=== PATIENT | male | born 1985 | race Caucasian/White ===

== ENCOUNTER 2022-02-11 00:03 | Emergency (ER) | payer MEDICAID ==
[~2022-02-11] VITALS: Ht 175.3 cm; Wt 108.9 kg
[2022-02-11 00:10] VITALS: BP_SYST 163
[2022-02-11] MEDS ORDERED: INDO-12 PO (00:46)
[2022-02-11 00:56] VITALS: BP_SYST 159
== END 2022-02-11 00:56 | disposition home or self-care (01) ==
LOC: SED 00:03
DX: M10.072 Idiopathic gout, left ankle and foot (principal); F17.210 Nicotine dependence, cigarettes, uncomplicated
CPT/HCPCS: 82962; 99283

== ENCOUNTER 2022-06-30 18:35 | Emergency (ER) | payer MEDICAID ==
[~2022-06-30] VITALS: Ht 177.8 cm; Wt 104.3 kg
[~2022-06-30 18:35] MED LIST: INDO-12 PO
[2022-06-30 18:39] VITALS: BP_SYST 168
--- NOTE | 2022-06-30 18:48 | NUR ---
Patient to ER bed 4 to gown for evaluation. Side rails up. Report given to JEROD JCAKSON.
--- NOTE | 2022-06-30 19:03 | NUR ---
PATIENT PRESENTS TO ER C/O NOT FEELING WELL AFTER DRINKING ALCOHOL AND USE COCAINE VITAL STABLE NO CP WILL CONTINUE TO MONITOR.
--- NOTE | 2022-06-30 19:14 | NUR ---
Placed in room, report given to LEI ALL QUESTIONS ANSWERED.
[2022-06-30] MEDS ORDERED: LORazepam 2 MG/ML VIAL IVP ONE (19:15)
[2022-06-30] MEDS ORDERED: FOLIC ACID 1 MG, THIAMINE HCL 100 MG, MAGNESIUM SULFATE 1 GM, MVI 10 ML in NACL 0.9% 1,... IV ONE (19:15)
[2022-06-30 19:16] LABS: BASOPHILS # (AUTO) 0.2 K/uL (0.0-0.2); BASOPHILS % (AUTO) 2.2 % (0.0-2.0); EOSINOPHILS % (AUTO) 0.6 % (0.0-4.0); HEMATOCRIT 45.4 % (36-54); HEMOGLOBIN 15.9 g/dL (14.0-18.0); LYMPHOCYTES # (AUTO) 1.2 K/uL (1.0-5.5); LYMPHOCYTES % (AUTO) 15.3 % (20.5-51.5); MEAN CORPUSCULAR HEMOGLOBIN 34 pg (27-31); MEAN CORPUSCULAR HGB CONC 35 % (32-36); MEAN CORPUSCULAR VOLUME 98 fL (79.0-98.0); MONOCYTES # (AUTO) 0.6 K/uL (0.0-1.0); MONOCYTES % (AUTO) 7.4 % (1.7-9.3); NEUTROPHILS # (AUTO) 6.1 K/uL (1.8-7.7); NEUTROPHILS % (AUTO) 74.5 % (40.0-70.0); PLATELET COUNT (AUTO) 210 K/uL (130-430); RED BLOOD CELL COUNT(AUTO) 4.64 MIL/uL (4.2-6.2); RED CELL DISTRIBUTION WIDTH 13.1 % (9.0-15.0); WHITE BLOOD COUNT (AUTO) 8.1 K/uL (4.8-10.8)
[2022-06-30 19:33] LABS: ANION GAP 7 (5-15); CHLORIDE 102 mmol/L (98-107); CREATININE 1.16 mg/dL (0.55-1.30); GLUCOSE 95 mg/dL (70-99); UREA NITROGEN, BLOOD 18 mg/dL (8-21)
[2022-06-30 19:38] LABS: ALANINE AMINOTRANSFERASE 212 U/L (12-78); ALBUMIN 4.5 g/dL (3.4-4.8); ASPARTATE AMINOTRANSFERASE 216 U/L (10-37); TOTAL BILIRUBIN 0.6 mg/dL (0.0-1.0)
[2022-06-30 19:43] LABS: ALCOHOL, BLOOD < 3 mg/dL (<10); GFR AFRICAN AMERICAN 91 mL/min (>90)
[2022-06-30] MEDS ORDERED: MVI 10 ML VIAL IV ONE (20:53)
[2022-06-30] MEDS ORDERED: FOLIC ACID 5 MG/ML VIAL IV ONE (20:53)
[2022-06-30] MEDS ORDERED: MAGNESIUM SULFATE 1 GM/2 ML VIAL ONE (20:53)
[2022-06-30] MEDS ORDERED: THIAMINE HCL 100 MG/ML VIAL ONE (20:53)
[2022-06-30] MEDS ORDERED: VIS25 PO (22:23)
[2022-07-01 05:19] VITALS: BP_SYST 134
== END 2022-06-30 22:20 | disposition home or self-care (01) ==
LOC: SED 18:35
DX: F10.239 Alcohol dependence with withdrawal, unspecified (principal); R06.02 Shortness of breath; R45.1 Restlessness and agitation; Z79.899 Other long term (current) drug therapy; Y90.6 Blood alcohol level of 120-199 mg/100 ml
CPT/HCPCS: 99284; 96365; 96375; 80053; 85025; 36415; G0482; J3490; J2060; J3475; J3411